=== PATIENT | male | born 1995 | race American Indian/Alaskan Native ===

== ENCOUNTER 2022-02-04 19:29 | Emergency (ER) | payer SELFPAY ==
[2022-02-04 22:02] VITALS: BP 140/91
== END 2022-02-04 23:45 | disposition left against medical advice (07) ==
LOC: ED 19:29
DX: S09.90XA Unspecified injury of head, initial encounter (principal); Z53.21 Procedure and treatment not carried out due to patient leaving prior to being seen by health care provider; W18.39XA Other fall on same level, initial encounter; Y93.89 Activity, other specified; Y92.89 Other specified places as the place of occurrence of the external cause; Y99.8 Other external cause status